=== PATIENT | male | born 1975 | race Caucasian/White ===

== ENCOUNTER 2016-11-29 05:51 | Day surgery (SDC) | payer OTHER ==
[~2016-11-29] VITALS: Ht 185.4 cm; Wt 88.5 kg
--- NOTE | ~2016-11-29 | DS ---
PATIENT'S NAME: [facility]LES [facility] AGE: 41 Y [address] ROOM: [address] [place], [place] [address] LOCATION: [facility] ADMIT DATE: 11/29/2016 Discharge Summary DISCHARGE DATE: 11/29/2016 FAMILY PHYSICIAN: ASTRID SHARIF ATTENDING PHYSICIAN: Annabella rGay ADMITTING DIAGNOSIS: Right C5-C6 disk herniation. COURSE IN THE HOSPITAL: The patient was a scheduled admission for an elective procedure. He presented with right-sided neck pain going down his right arm and MRI showed a right C5-C6 disk herniation. TREATMENT RENDERED: The patient was taken to the operating room today and had a C5-C6 diskectomy with fusion and plating. His surgery was uncomplicated. On examination this evening, the patient has hardly any more pain. His preoperative pain has disappeared. He is ambulating independently and has hardly taken any pain medicines. His dressing is dry and intact, and he has normal strength in all his extremities. I have released the patient to go home this evening, and he will be followed up in 2 weeks' time to see how he is doing. I have given him instructions on wound care and on return to work which will be evaluated when he comes for followup. FINAL DIAGNOSES: 1. Cervical radiculopathy. 2. Cervical spondylosis. 3. Neck pain. MD YAMILA PITTMANO/modl /[id number] CC: Astrid Cabral MD [place], [place] d: 11/30/16 0726 t: 12/09/16 0943, DISCHARGE SUMMARY
--- NOTE | ~2016-11-29 | OR ---
PATIENT'S NAME: CHARLES FIGUEROA [facility] AGE: 41 Y [address] ROOM: [address] [place], [place] [address] LOCATION: [facility] ADMIT DATE: 11/29/2016 OR/Procedure Report DISCHARGE DATE: 11/29/2016 FAMILY PHYSICIAN: ASTRID HAMMOND ATTENDING PHYSICIAN: Annabella Hargrove SURGEON: Annabella Hargrove MD COMBINED RAIL OPERATOR: Chapis Meyer. DATE OF PROCEDURE: 11/29/2016 PREOPERATIVE DIAGNOSIS: Cervical disk herniation, right C5-C6. POSTOPERATIVE DIAGNOSIS: Cervical disk herniation, right C5-C6. PROCEDURES PERFORMED: 1. Anterior cervical diskectomy with decompression of neural elements and foraminotomy at C5-C6. 2. Structural and morselized allograft fusion at C5-C6. 3. Use of anterior plating system at C5-C6. 4. Use of intraoperative microscope. ANESTHESIA: General. ANESTHESIA PROVIDER: Noah Buitrago MD. HISTORY: The patient is a 41-year-old gentleman who presented with right neck and right arm pain. Symptoms are making it difficult for the patient to sleep at night. There was some improvement with expectant treatment, but over the last couple of weeks the patient's symptoms have persisted and surgery was recommended therefore. The above procedure with benefits and risks were discussed with the patient, and with his consent, he was brought to the operating room for surgery. PROCEDURE IN DETAIL: In the operating room, the patient was placed in a supine position. Anesthesia was induced and he was intubated. His head was supported on a gel donut and a roll was placed under his shoulders to maintain his neck in slight extension. The incision was marked out along the anterior border of the right sternomastoid and the whole area was prepped and draped in a sterile fashion. Local anesthesia was infiltrated along the incision. The #10 blade was used to open the incision and deepen it through the platysma. The anterior border of the sternomastoid was identified. Dissection was carried out along the anterior border of the sternomastoid until the omohyoid muscle was seen. The space between the two muscles, omohyoid and sternomastoid, was then developed with the parotid artery retracted laterally and the esophagus retracted medially. The Cloward handheld retractors were used to help visualization during the dissection. PATIENT'S NAME: CHARLES FIGUEROA [facility] AGE: 41 Y [address] ROOM: [id number] [place], [place] [address] LOCATION: [facility] ADMIT DATE: 11/29/2016 OR/Procedure Report DISCHARGE DATE: 11/29/2016 FAMILY PHYSICIAN: ASTRID HAMMOND ATTENDING PHYSICIAN: Annabella Hargrove At the anterior surface of the spine, there was a prominent osteophyte in one of the disk spaces and I felt that this was likely the site of the patient's problems, i.e., C5-C6. Intraoperative x-ray was obtained and confirmed that this was indeed the level we wanted to operate on. The longus colli muscles were then dissected off the anterior surface of the spine and [employer] self- retaining retractors were placed. Microscope was brought in at this point, and the rest of the procedure was carried out under microscopic vision. The osteophyte was rongeured away to expose the disk. The disk was then incised with a #15 blade. Pituitary rongeur was used to pull out this material. Curette was used to scrape out more disk which was removed with the pituitary rongeur. The edges of the disk space were then drilled down to expose the end plates. The posterior longitudinal ligament was opened and the posterior osteophytes were also removed with a Kerrison rongeur. The ball-tipped probe was used to probe the right C5-C6 neural foramen. A piece of disk was retrieved which apparently had gone into the foramen behind the PLL. This was likely the cause of the patient's pain. Foraminotomy was also carried out on the left side. Irrigation was used to wash out the debris. Appropriate size piece of bone graft was selected. Bone graft was filled with demineralized bone matrix, i.e., morcellized allograft fusion. The bone grafts were then inserted into C5-C6 and had a very snug fusion. An anterior cervical plate was used to support the fusion. Another x-ray was obtained to verify that the screws, plates, and grafts were in good position. Final hemostasis was achieved. The incision was closed in layers using appropriate suture materials. A sterile dressing was applied. The patient's anesthesia was reversed. He was extubated and taken to the recovery room to complete his recovery. I was present at and performed every aspect of this procedure, assisted at some point by the operating room nurses. There were no apparent intraoperative complications. Swabs, needles, and instruments were all accounted for at the end of the case. Estimated blood loss was less than 50 mL. There was no reason for blood transfusion. I expect the patient to benefit from this procedure. ANNABELLA HARGROVE MD CNO/modl PATIENT'S NAME: CHARLES FIGUEROA [facility] AGE: 41 Y [address] ROOM: [address] [address] LOCATION: [facility] ADMIT DATE: 11/29/2016 OR/Procedure Report DISCHARGE DATE: 11/29/2016 FAMILY PHYSICIAN: ASTRID HAMMOND ATTENDING PHYSICIAN: Annabella Hargrove /[id number] CC: Astrid Hammond MD [place]. [place] d: 11/30/16 0036 t: 12/09/16 0940, OPERATIVE SUMMARY
--- NOTE | 2016-11-29 17:28 | NUR ---
Significant Event: REceived from PACU at 1050. Routine VS. Dressing dry and intact to neck. Up to chair/BR with standby assist. IV saline locked Follow up:
[2016-11-29] MEDS ORDERED: NORCO 7.5-3251 EACH PO (19:45)
--- NOTE | 2016-11-29 22:05 | NUR ---
PATIENT DISMISSED TO HOME FOR SELF CARE. ALERT AND ORIENTED X 3. VSS. TAKING PO AND VOIDING WITHOUT DIFFICULTY. UP WITH SBA - GAIT STEADY. DENIES PAIN. DRESSING TO RIGHT NECK C/D/I. CSM'S WNL. DISMISSAL INSTRUCTIONS DISCUESSED WITH PATIENT AND . DISCUSSED MAKING F/U APPOINTMENT WITH DR. HARGROVE IN 2 WEEKS. DISCUSSED ACTIVITY - NO PUSHING, PULLING OR LIFTING MORE THAN 10 POUNDS BUT TO BE UP WALKING TOLERATED. DISCUSSED DIET TOLERATED. DISCUSSED DRESSING CHANGE AND SHOWER ON November. SHOWER GUARDS AND EXTRA DRESSING SENT WITH PATIENT IN CASE DRESSING BECOMES NON-OCCLUSIVE. DISCUSSED S/S OF INFECTION AND PE/DVT. DISCUSSED RX FOR NORCO - PATIENT DOESN'T TAKE ANY HOME MEDS. DISMISSAL INSTURCTIONS, RX AND KRAMES SENT WITH PATIENT. QUESTIONS WERE ENCOURAGED. PATIENT AND SPOUSE VERBALIZED UNDERSTANDING. PATIENT DISMISSED TO HOME IN STABLE CONDITION. PATIENT AND BELONGINGS TAKEN TO FRONT LOBBY AND PATIENT WAS ASSISTED INTO VEHICLE AND SECURED WITH SAFETY BELT.
== END 2016-11-29 20:10 | disposition disaster alternative care site (69) ==
LOC: GSDC 05:51 → G3N 05:51 → GPOC 08:00 → G3N 11:05 → GSDC 20:10
PROC: 0RB30ZZ Excision of Cervical Vertebral Disc, Open Approach (ICD-10-PCS; principal; 2016-11-29)
PROC: 0RG10K0 Fusion of Cervical Vertebral Joint with Nonautologous Tissue Substitute, Anterior Approach, Anterior Column, Open Approach (ICD-10-PCS; 2016-11-29)
DX: M50.122 Cervical disc disorder at C5-C6 level with radiculopathy (principal); M47.22 Other spondylosis with radiculopathy, cervical region; Z79.899 Other long term (current) drug therapy; F17.200 Nicotine dependence, unspecified, uncomplicated
CPT/HCPCS: C1713; J0690; J1100; J2250; J2405; J7120